=== PATIENT | female | born 1995 | race Caucasian/White ===

== ENCOUNTER 2018-05-07 19:53 | Observation (INO) | payer OTHER ==
--- NOTE | 2018-05-07 20:20 | PDOC ---
Rapid Medical Evaluation Chief Complaint: Nausea/Vomiting Time Seen by Provider: 05/07/18 20:18 Medical Evaluation: 05/07/18 20:18 I have performed a brief in-person evaluation of this patient. The patient presents with a chief complaint of: nausa, vomiting and diarrhea. Also reports lower back pain with no radiation States history of sciatica and kidney stone Pertinent physical exam findings: NAD unlabored breathing no midspinal tenderness no cva tenderness I have ordered the following: urine preg, urinalysis, analgesia The patient will proceed to the ED for further evaluation. Discharge Disposition - Diagnosis Back pain - Referrals - Patient Instructions - Post Discharge Activity
[2018-05-07 21:02] LABS: URINE APPEARANCE SLCLOUDY; URINE BILIRUBIN NEGATIVE (<2.0 mg/dL); URINE COLOR DKYELLOW; URINE GLUCOSE (UA) NEGATIVE (NEGATIVE); URINE KETONE 2+ (NEGATIVE); URINE LEUK ESTERASE NEGATIVE (NEGATIVE); URINE NITRITE NEGATIVE (NEGATIVE); URINE PROTEIN 1+ (NEGATIVE); URINE UROBILINOGEN NEGATIVE mg/dL (0.2-1.0)
[2018-05-07 21:03] LABS: HCG,QUALITATIVE URINE Negative
[2018-05-07 21:16] LABS: EPI CELLS FEW /HPF (FEW); URINE MUCUS RARE
--- NOTE | 2018-05-07 21:50 | PDOC ---
Attending Attestation - HPI HPI: 05/07/18 22:34 The patient is a 22 year old, with a significant PMH of nephrolithiasis, who presents to the emergency department today for evaluation of right flank pain which she describes as a constant cramping that began this morning. Patient also notes 1 day of nausea, vomiting, and diarrhea. She states these symptoms are similar to when she had kidney stones. The patient denies chest pain, shortness of breath, headache and dizziness. Denies fever, chills, and constipation. Denies dysuria, frequency, urgency and hematuria. Allergies: Codeine Social history: None reported - Physicial Exam PE: 05/07/18 22:34 Agree with resident's exam. <Betsey Oconnor - Last Filed: 05/07/18 22:36> - Resident Resident Name: Mike Gil - ED Attending Attestation I have performed the following: I have examined & evaluated the patient, The case was reviewed & discussed with the resident, I agree w/resident's findings & plan - Medical Decision Making 05/07/18 23:33 22-year-old female with vomiting and diarrhea, now with bilateral back pain and history of kidney stones Labs as well as CT scan of the abdomen and pelvis IV fluid normal saline, analgesics Plan for discharge home pending CT scan and lab results <Barb Cardona - Last Filed: 05/07/18 23:35> Attestations - Attestations 05/07/18 22:36 Documentation prepared by Betsey Oconnor, acting as hospital medical biller for Barb Cardona DO. <Betsey Oconnor - Last Filed: 05/07/18 22:36>
--- NOTE | 2018-05-07 22:08 | PDOC ---
History of Present Illness - General Chief Complaint: Nausea/Vomiting Stated Complaint: BACK PAIN VOMITING Time Seen by Provider: 05/07/18 20:18 History Source: Patient Exam Limitations: No Limitations - History of Present Illness Initial Comments: 05/07/18 22:20 22 yo F with a hx of nephrolithiais (2x lithotripsy and ureteral stent right side 10 years ago) presents to the emergency department with N/V/D with concurrent bilateral lower back pain that is consistent with her nephrolithiasis. Per the patient, the pain was gradual onset with 10/10 constant cramp like pain without radiation with right lower back worse than left side back. She states she has had 5+ NBNB emesis events with diarrhea without hematochezia. Per the patient, she endorses the following: headaches. Denies the following: fevers, chills, neck stiffness, chest pain, SOB, abdominal pain, dysuria, hematuria, hematochezia, leg pain/swelling, and vaginal bleeding/discharge. Currently on OCP. Meds: None Allergies: Codeine Shx: None Pmhx: Nephrolithiasis Past History - Past Medical History Allergies/Adverse Reactions: Allergies Allergy/AdvReac Type Severity Reaction Status Date / Time codeine Allergy Verified 05/07/18 20:18 Home Medications: Ambulatory Orders NK [No Known Home Medication] 05/07/18 COPD: No - Suicide/Smoking/Psychosocial Hx Smoking History: Never smoked Have you smoked in the past 12 months: No Information on smoking cessation initiated: No Hx Alcohol Use: No Drug/Substance Use Hx: No Review of Systems - Review of Systems Able to Perform ROS?: Yes Is the patient limited Tajik proficient: No Constitutional: No: Chills, Diaphoresis, Fever HEENTM: No: Eye Pain, Ear Pain, Nose Pain, Throat Pain, Mouth Pain Respiratory: No: Cough, Shortness of Breath Cardiac (ROS): No: Chest Pain, Lightheadedness, Palpitations, Syncope, Chest Tightness ABD/GI: Yes: Diarrhea, Nausea, Vomiting. No: Constipated, Poor Appetite, Poor Fluid Intake, Rectal Bleeding, Tarry Stools : No: Burning, Dysuria, Hematuria, Incontinence Musculoskeletal: Yes: Back Pain. No: Joint Pain, Neck Pain Integumentary: No: Bruising, Erythema, Rash Neurological: Yes: Headache. No: Numbness, Tingling, Tremors, Ataxia Psychiatric: No: Change in Appetite Endocrine: No: Increased Hunger Hematologic/Lymphatic: No: Anemia *Physical Exam - Vital Signs Last Vital Signs Temp Pulse Resp BP Pulse Ox 98.1 F 132 H 16 141/78 100 05/07/18 20:15 05/07/18 20:15 05/07/18 20:15 05/07/18 20:15 05/07/18 20:15 - Physical Exam General Appearance: Yes: Nourished, Appropriately Dressed. No: Apparent Distress, Intoxicated, Cachetic HEENT: positive: EOMI, JUAN C, Normal Voice, Symmetrical, Pharynx Normal, Hearing Grossly Normal. negative: Pale Conjunctivae, Scleral Icterus (R), Scleral Icterus (L), Muffled/Hoarse voice, Excessive drooling Neck: positive: Trachea midline, Supple. negative: Tender, Lymphadenopathy (R) , Lymphadenopathy (L), Tender lateral, Tender midline Respiratory/Chest: positive: Lungs Clear, Normal Breath Sounds. negative: Chest Tender, Respiratory Distress, Accessory Muscle Use, Crackles, Rales, Rhonchi, Stridor, Wheezing Cardiovascular: positive: Regular Rhythm, Regular Rate, S1, S2. negative: Systolic Murmur Gastrointestinal/Abdominal: positive: Normal Bowel Sounds, Flat, Soft. negative : Tender, Rebound Lymphatic: negative: Adenopathy Musculoskeletal: positive: Normal Inspection. negative: CVA Tenderness, Vertebral Tenderness Extremity: positive: Normal Capillary Refill, Normal Inspection, Normal Range of Motion. 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 negative: Facial Droop, Sensory Deficit Moderate Sedation - Procedure Monitoring Vital Signs: Procedure Monitoring Vital Signs Temperature 98.1 F 05/07/18 20:15 Pulse Rate 132 H 05/07/18 20:15 Respiratory Rate 16 05/07/18 20:15 Blood Pressure 141/78 05/07/18 20:15 O2 Sat by Pulse Oximetry (%) 100 05/07/18 20:15 ED Treatment Course - LABORATORY CBC & Chemistry Diagram: 05/07/18 22:10 05/07/18 22:10 - ADDITIONAL ORDERS Additional order review: Laboratory Results 05/07/18 20:42 Urine Color Dkyellow Urine Appearance Slcloudy Urine pH 5.0 Ur Specific [place] 1.032 Urine Protein 1+ H Urine Glucose (UA) Negative Urine Ketones 2+ H Urine Blood Negative Urine Nitrite Negative Urine Bilirubin Negative Urine Urobilinogen Negative Ur Leukocyte Esterase Negative Urine WBC (Auto) 5 Urine RBC (Auto) 1 Ur Epithelial Cells Few Urine Mucus Rare Urine HCG, Qual Negative Medical Decision Making - Medical Decision Making 22 yo F with a hx of nephrolithiais (2x lithotripsy and ureteral stent right side 10 years ago) presents to the emergency department with N/V/D with concurrent bilateral lower back pain that is consistent with her nephrolithiasis. Initial vitals: Initial Vital Signs Temp Pulse Resp BP Pulse Ox 98.1 F 132 H 16 141/78 100 05/07/18 20:15 05/07/18 20:15 05/07/18 20:15 05/07/18 20:15 05/07/18 20:15 Work up: ddx: nephrolithiasis vs UTI vs vs gastroenteritis Laboratory Tests 05/07/18 05/07/18 05/07/18 20:42 22:10 22:10 WBC 11.8 H RBC 5.25 H Hgb 14.9 Hct 44.1 MCV 84.0 MCH 28.4 MCHC 33.8 RDW 13.2 Plt Count 482 H MPV 7.3 L Sodium 140 Potassium 4.9 Chloride 106 Carbon Dioxide 22 Anion Gap 12 BUN 19 H Creatinine 0.9 Creat Clearance w eGFR > 60 Random Glucose 111 H Calcium 9.9 Total Bilirubin 0.7 AST 22 ALT 24 Alkaline Phosphatase 102 Total Protein 8.6 H Albumin 4.0 Lipase 55 L Urine Color Dkyellow Urine Appearance Slcloudy Urine pH 5.0 Ur Specific [place] 1.032 Urine Protein 1+ H Urine Glucose (UA) Negative Urine Ketones 2+ H Urine Blood Negative Urine Nitrite Negative Urine Bilirubin Negative Urine Urobilinogen Negative Ur Leukocyte Esterase Negative Urine WBC (Auto) 5 Urine RBC (Auto) 1 Ur Epithelial Cells Few Urine Mucus Rare Urine HCG, Qual Negative UA shows 5 WBC with 2+ ketones likely consistent with dehydration. patient has slight leukocytosis likely secondary to reactivity. significant improvement in symptoms when given toradol/IVF/zofran. patient was having a pending ct abdomen and pelvis to assess status of ureteral vs nephro stones. Patient was signed out to Dr. Martinez for further work up and management. *DC/Admit/Observation/Transfer Diagnosis at time of Disposition: Back pain Qualifiers: Back pain location: back pain in unspecified location Chronicity: unspecified Back pain laterality: unspecified Qualified Code(s): M54.9 - Dorsalgia, unspecified - Referrals - Patient Instructions - Post Discharge Activity
[2018-05-07] MEDS ORDERED: KETOROLAC TROMETHAMINE 30 MG/1 ML VIAL IM ONE (22:09)
[2018-05-07] MEDS ORDERED: KETOROLAC TROMETHAMINE 30 MG/1 ML VIAL ONE (22:15)
[2018-05-07 22:18] LABS: HEMATOCRIT 44.1 % (32.4-45.2); HEMOGLOBIN 14.9 GM/dL (10.7-15.3); MCH 28.4 pg (25.7-33.7); MCHC 33.8 g/dl (32.0-36.0); MEAN PLT VOLUME 7.3 fl (7.5-11.1); PLATELET COUNT 482 K/MM3 (134-434); RBC 5.25 M/mm3 (3.60-5.2); RDW 13.2 % (11.6-15.6); WHITE BLOOD COUNT 11.8 K/mm3 (4.0-10.0)
[2018-05-07] MEDS ORDERED: SODIUM CHLORIDE 1,000 ML IV STA (22:19)
[2018-05-07] MEDS ORDERED: ONDANSETRON 4 MG/2 ML VIAL IVPUSH ONE (22:20)
[2018-05-07] MEDS ORDERED: ONDANSETRON 4 MG/2 ML VIAL ONE (22:29)
[2018-05-07 22:48] LABS: ALK PHOS 102 U/L (45-117); ANION GAP 12 MMOL/L (8-16); BILIRUBIN,TOTAL 0.7 mg/dL (0.2-1); BLOOD UREA NITROGEN 19 mg/dL (7-18); CALCIUM 9.9 mg/dL (8.5-10.1); CHLORIDE 106 mmol/L (98-107); CO2 22 mmol/L (21-32); CREATININE 0.9 mg/dL (0.55-1.3); GLUCOSE,RANDOM 111 mg/dL (74-106); LIPASE 55 U/L (73-393); POTASSIUM 4.9 mmol/L (3.5-5.1); SGOT/AST 22 U/L (15-37); SGPT/ALT 24 U/L (13-61); SODIUM 140 mmol/L (136-145); TOT PROT 8.6 g/dl (6.4-8.2)
--- NOTE | 2018-05-08 00:53 | PDOC ---
*Physical Exam - Vital Signs Last Vital Signs Temp Pulse Resp BP Pulse Ox 98.1 F 132 H 16 141/78 100 05/07/18 20:15 05/07/18 20:15 05/07/18 20:15 05/07/18 20:15 05/07/18 20:15 - Physical Exam Comments: 05/08/18 01:05 GENERAL: Awake, alert, and fully oriented, in no acute distress HEAD: No signs of trauma, normocephalic, atraumatic EYES: PERRLA, EOMI, sclera anicteric, conjunctiva clear ENT: Hearing grossly normal, nares patent, oropharynx clear without exudates. Moist mucosa NECK: Normal ROM, supple, no lymphadenopathy, JVD, or masses LUNGS: No distress, speaks full sentences, clear to auscultation bilaterally HEART: Regular rate and rhythm, normal S1 and S2, no murmurs, rubs or gallops, peripheral pulses normal and equal bilaterally. ABDOMEN: Diffuse mild ttp. Soft, NDS, normoactive bowel sounds. No guarding, no rebound. No masses EXTREMITIES : Normal inspection, Normal range of motion, no edema. No clubbing or cyanosis. SKIN: Warm, Dry, normal turgor, no rashes or lesions noted ED Treatment Course - LABORATORY CBC & Chemistry Diagram: 05/07/18 22:10 05/07/18 22:10 - ADDITIONAL ORDERS Additional order review: Laboratory Results 05/07/18 05/07/18 22:10 20:42 Sodium 140 Potassium 4.9 Chloride 106 Carbon Dioxide 22 Anion Gap 12 BUN 19 H Creatinine 0.9 Creat Clearance w eGFR > 60 Random Glucose 111 H Calcium 9.9 Total Bilirubin 0.7 AST 22 ALT 24 Alkaline Phosphatase 102 Total Protein 8.6 H Albumin 4.0 Lipase 55 L Urine Color Dkyellow Urine Appearance Slcloudy Urine pH 5.0 Ur Specific [place] 1.032 Urine Protein 1+ H Urine Glucose (UA) Negative Urine Ketones 2+ H Urine Blood Negative Urine Nitrite Negative Urine Bilirubin Negative Urine Urobilinogen Negative Ur Leukocyte Esterase Negative Urine WBC (Auto) 5 Urine RBC (Auto) 1 Ur Epithelial Cells Few Urine Mucus Rare Urine HCG, Qual Negative 05/07/18 22:10 RBC 5.25 H MCV 84.0 MCHC 33.8 RDW 13.2 MPV 7.3 L - RADIOLOGY Radiology Studies Ordered: 05/08/18 01:18 : 1995 Order Type: Preliminary Name: KJ FERRER Sex: F Study Description: CT ABDOMEN AND PELVIS Modality: CT Location: [facility] Referring Physician: BRIT SPANGLER Stomach: Normal Small bowel: Normal Large bowel: Normal Appendix: Appendix is mildly distended measuring 8 mm and is filled with fluid. There is no wall thickening or surrounding edema. Adrenals:Normal Kidneys: Normal Vascular: Normal Lymphatic: There are some mildly enlarged right lower quadrant mesenteric nodes. The largest measures 7 x 7 mm Peritoneal: No free peritoneal air or fluid Pelvis: Uterus: normal CONFIDENTIALITY NOTICE: This information is intended only for the use of the recipient(s) named above. If you are not the intended recipient, or a person responsible for delivering it to the intended recipient, you are hereby notified that any disclosure, copying, distribution or use of any of the information contained in or attached to this transmission is STRICTLY PROHIBITED. If you have received this transmission in error, please immediately notify Imaging Ed Special Education Teacher and destroy the original transmission and its attachments without saving them in any manner [address] [facility] [address] [place] [address] Phone: [phone] Fax: Email: [email or web address] Patient Information: : 1995 Order Type: Preliminary Name: KJ FERRER Sex: F Study Description: CT ABDOMEN AND PELVIS Modality: CT Location: [facility] Referring Physician: BRIT SPANGLER Rectum: Normal Bladder: Normal The inferior thorax: Normal General: Skeletal: Normal Abdominal wall: Normal IMPRESSION: Mildly distended appendix with right lower quadrant mesenteric lymph node enlargement. Findings concerning for early or mild appendicitis. This may reflect a chronic viral inflammation rather than an acute separative process. Correlation with history exam and leukocytosis is recommended One or more of the following dose reduction techniques were used: automated exposure control, adjustment of the mA and/or kV according to patient size, use of iterative reconstructive technique. THIS DOCUMENT HAS BEEN ELECTRONICALLY SIGNED Dayo Ayala MD CONFIDENTIALITY NOTICE: This information is intended only for the use of the recipient(s) named above. If you are not the intended recipient, or a person responsible for delivering it to the intended recipient, you are hereby notified that any disclosure, copying, distribution or use of any of the information contained in or attached to this transmission is STRICTLY PROHIBITED. If you have received this transmission in error, please immediately notify Imaging Ed Special Education Teacher and destroy the original transmission and its attachments without saving them in any manner [address] [facility] [address] [place] [address] Phone: [phone] Fax: Email: [email or web address] Patient Information: : 1995 Order Type: Preliminary Name: KJ FERRER Sex: F Study Description: CT ABDOMEN AND PELVIS Modality: CT Location: [facility] Referring Physician: BRIT SPANGLER 05/08/2018 00:37 JENNIFER Mccauley Please call Imaging Ed Special Education Teacher [phone]) with questions. Dayo Ayala MD Clinicians - Please contact Imaging Ed Special Education Teacher with further questions at [phone]) Patients - Please contact your Ordering Provider with questions - Medications Given in the ED: ED Medications Discontinued Medications Generic Name Dose Route Start Last Admin Trade Name Freq PRN Reason Stop Dose Admin Sodium Chloride 1,000 mls @ 1,000 mls/hr 05/07/18 22:19 05/07/18 22:38 Normal Saline - IV 05/07/18 23:18 1,000 mls/hr ASDIR STA Administration Ketorolac Tromethamine 30 mg 05/07/18 22:09 05/07/18 22:19 Toradol Injection - IM 05/07/18 22:10 30 mg ONCE ONE Administration Ondansetron HCl 4 mg 05/07/18 22:20 05/07/18 22:38 Zofran Injection IVPUSH 05/07/18 22:21 4 mg ONCE ONE Administration Medical Decision Making - Medical Decision Making 05/08/18 00:45 22 yo F with h/o nephrolithiasis ( ureteral stent x 10 years ago, and lithrotrispy x 2) p/w N/V ( 5 episode NBNB emesis), and diarrhea x 1 day. HR 132 , vitals otherwise wnl, AF, A&OX3. Physical exam notable for RLQ ttp. Recieived singout from Dr. Brandon. Evaluating for nephrolithaisis vs. appendicitis. Labs, UA pending. Pain controlled with toradol. Antiemeitc and hydration control provided with Zofran, NS. 22 yo F with a hx of nephrol ED Course: Per Dr. Cohen ( imaging extension course counselor ) pt. appendix is enlarged, with enlarged lymph nodes. Viral etiology ssupected vs. suppurative appendicitis. Will likely not require surgical management. 05/08/18 00:48 UA: Neg urine preg: Neg 05/08/18 01:17 CT AP: IMPRESSION: Mildly distended appendix with right lower quadrant mesenteric lymph node enlargement. Findings concerning for early or mild appendicitis. This may reflect a chronic viral inflammation rather than an acute separative process. Correlation with history exam and leukocytosis is recommended Patient refused pelvic exam. 05/08/18 02:14 Patient endorsed to surgery Dr. Monroe. will provide maintenance fluids, IV tylenol, NPO, No Antibiotics. Plan to admit med/surg 05/08/18 03:11 Patient endorsed and admitted Dr. Tavares. Will remain NPO on Maintenance fluids. Dr. Monroe to see in AM. *DC/Admit/Observation/Transfer Diagnosis at time of Disposition: Appendicitis Qualifiers: Appendicitis type: unspecified Qualified Code(s): K37 - Unspecified appendicitis - Discharge Dispostion Condition at time of disposition: Stable Decision to Admit order: Yes - Referrals - Patient Instructions - Post Discharge Activity
[2018-05-08] MEDS ORDERED: SODIUM CHLORIDE 1,000 ML IV SCH (01:30)
--- NOTE | 2018-05-08 03:25 | HP ---
CHIEF COMPLAINT: Abdominal Pain PCP: Not on file HISTORY OF PRESENT ILLNESS: Patient presents with abdominal pain; she is on no chronic Rx medications. She presents for a 1 day history of R-flank pain radiating around as well as nausea/ vomitting/1x diarrhea. She if afebrile and tachycardic on presentation; she got IVF in the ER. She has a history of nephrolithiasis and given the presenting sx CT checked; it revealed on the prelim report ? early appendicitis ? ER discussed with Dr. Monroe; based on the conversation we will not start abx, keep the pt NPO, and place her on maintenance fluids. Surgery to see in AM. Appreciate expert opinion in the ongoing management of this patient. PAST MEDICAL HISTORY: Nephrolithiasis PAST SURGICAL HISTORY: 2x lithotripsy, stent placement (10 yrs ago) Social History: Family History: Asked and noncontributory Allergies codeine Allergy (Verified 05/07/18 20:18) HOME MEDICATIONS: Home Medications Medication Instructions Recorded NK [No Known Home Medication] 05/07/18 REVIEW OF SYSTEMS 10 sys ROS done and negative aside from HPI PHYSICAL EXAMINATION Vital Signs - 24 hr 05/07/18 20:15 Temperature 98.1 F Pulse Rate 132 H Respiratory 16 Rate Blood Pressure 141/78 O2 Sat by Pulse 100 Oximetry (%) GENERAL: Awake, alert, and fully oriented, in no acute distress. HEAD: Normal with no signs of trauma. EYES: Pupils equal, round and reactive to light, extraocular movements intact EARS, NOSE, THROAT: Ears normal, nares patent, oropharynx clear without exudates. Moist mucous membranes. NECK: Normal range of motion, supple without lymphadenopathy, JVD, or masses. LUNGS: Breath sounds equal, clear to auscultation bilaterally. No wheezes, and no crackles. No accessory muscle use. HEART: Regular rate and rhythm, normal S1 and S2 without murmur, rub or gallop. ABDOMEN: Soft, slightly tender, not distended, normoactive bowel sounds MUSCULOSKELETAL: Normal range of motion at all joints. No bony deformities or tenderness. No CVA tenderness. NEUROLOGICAL: Cranial nerves II-XII intact. Normal speech. Normal gait. PSYCHIATRIC: Cooperative. Good eye contact. Appropriate mood and affect. SKIN: Warm, dry, normal turgor, no rashes or lesions noted, normal capillary refill. Laboratory Results - last 24 hr 05/07/18 05/07/18 05/07/18 20:42 22:10 22:10 WBC 11.8 H RBC 5.25 H Hgb 14.9 Hct 44.1 MCV 84.0 MCH 28.4 MCHC 33.8 RDW 13.2 Plt Count 482 H MPV 7.3 L Sodium 140 Potassium 4.9 Chloride 106 Carbon Dioxide 22 Anion Gap 12 BUN 19 H Creatinine 0.9 Creat Clearance w eGFR > 60 Random Glucose 111 H Calcium 9.9 Total Bilirubin 0.7 AST 22 ALT 24 Alkaline Phosphatase 102 Total Protein 8.6 H Albumin 4.0 Lipase 55 L Urine Color Dkyellow Urine Appearance Slcloudy Urine pH 5.0 Ur Specific [place] 1.032 Urine Protein 1+ H Urine Glucose (UA) Negative Urine Ketones 2+ H Urine Blood Negative Urine Nitrite Negative Urine Bilirubin Negative Urine Urobilinogen Negative Ur Leukocyte Esterase Negative Urine WBC (Auto) 5 Urine RBC (Auto) 1 Ur Epithelial Cells Few Urine Mucus Rare Urine HCG, Qual Negative Prelim CT: IMPRESSION: Mildly distended appendix with right lower quadrant mesenteric lymph node enlargement. Findings concerning for early or mild appendicitis. This may reflect a chronic viral inflammation rather than an acute separative process. Correlation with history exam and leukocytosis is recommended ASSESSMENT/PLAN: Patient presents with flank pain, nausea, vomitting, diarrhea. ER spoke to surgery; placing on observation for ? early appy 1) ? Early appendicitis -NPO, LR@100cc/hr, followup surgical consult -IV APAP and PRN MSO4 -Holding off abx per sgy; followup final imaging 2) Nausea/vomiting/diarrhea -PRN zofran, check lactoferrin and fecal WBC, low risk of C Diff at this juncture 3) Hx Nephrolithiasis -Noted; followup OP 4) Thrombocytosis -Trend CBC, likely reactive DVT px: SCDs and early ambulation, low risk GI px: Not indicated Full Code
[2018-05-08] MEDS ORDERED: MORPHINE SULFATE 2 MG/ML VIAL IVPUSH PRN (03:33)
[2018-05-08] MEDS ORDERED: ONDANSETRON 4 MG/2 ML VIAL IVPUSH PRN (03:33)
[2018-05-08] MEDS ORDERED: ACETAMINOPHEN 325 MG TABLET (FP) PO PRN (03:33)
[2018-05-08] MEDS ORDERED: LACTATED RINGERS SOLUTION 1,000 ML IV SCH (03:45)
[2018-05-08 04:55] LABS: HEMOGLOBIN 12.4 GM/dL (10.7-15.3); MCH 28.5 pg (25.7-33.7); MCHC 34.4 g/dl (32.0-36.0); MEAN PLT VOLUME 7.1 fl (7.5-11.1); PLATELET COUNT 385 K/MM3 (134-434); RBC 4.34 M/mm3 (3.60-5.2); RDW 12.8 % (11.6-15.6); WHITE BLOOD COUNT 5.5 K/mm3 (4.0-10.0)
[2018-05-08 05:13] LABS: INR 1.09 (0.83-1.09); PROTHROMBIN TIME (PATIENT) 12.9 SEC (9.7-13.0)
[2018-05-08 05:23] LABS: ANION GAP 7 MMOL/L (8-16); BLOOD UREA NITROGEN 20 mg/dL (7-18); CALCIUM 8.1 mg/dL (8.5-10.1); CHLORIDE 112 mmol/L (98-107); CO2 20 mmol/L (21-32); CREATININE 0.6 mg/dL (0.55-1.3); GLUCOSE,RANDOM 97 mg/dL (74-106); MAGNESIUM 2.2 mg/dL (1.8-2.4); POTASSIUM 4.1 mmol/L (3.5-5.1); SODIUM 139 mmol/L (136-145)
[2018-05-08 06:32] VITALS: BMI 29.9
[2018-05-08 09:13] VITALS: BP 121/62; PULSE 92; TEMP 98.8
--- NOTE | 2018-05-08 13:30 | EKG ---
Test Reason : Blood Pressure : / mmHG Vent. Rate : 097 BPM Atrial Rate : 097 BPM P-R Int : 138 ms QRS Dur : 084 ms QT Int : 348 ms P-R-T Axes : 020 051 036 degrees QTc Int : 441 ms NORMAL SINUS RHYTHM NORMAL ECG NO PREVIOUS ECGS AVAILABLE Confirmed by MD KYLIE, ROSHNI ([id number]) on 05/08/2018 1:30:36 PM Referred By: Confirmed By:ROSHNI ESPINAL MD
--- NOTE | 2018-05-08 14:31 | HOSP ---
Subjective - Review of Symptoms Events since last encounter: patient left AMA even before I evaluated her. risks of leaving AMA were d/w her By Dr. Ariane devlin Physical Examination Vital Signs: Vital Signs Temperature 98.8 F 05/08/18 09:00 Pulse Rate 92 H 05/08/18 09:00 Respiratory Rate 17 05/08/18 09:00 Blood Pressure 121/62 05/08/18 09:00 O2 Sat by Pulse Oximetry (%) 98 05/08/18 10:26 Labs: CBC, BMP 05/08/18 04:34 05/08/18 04:34
--- NOTE | 2018-05-08 14:47 | DS ---
Physical Exam: SUBJECTIVE: Patient seen and examined OBJECTIVE: Vital Signs Period Temp Pulse Resp BP Sys/Mario Pulse Ox Last 24 Hr 98.1 F-98.9 F 92-132 16-20 121-141/62-78 98-100 PHYSICAL EXAM GENERAL: The patient is awake, alert, and fully oriented, in no acute distress. HEAD: Normal with no signs of trauma. EYES: PERRL, extraocular movements intact, sclera anicteric, conjunctiva clear. ENT: Ears normal, nares patent, oropharynx clear without exudates, moist mucous membranes. NECK: Trachea midline, full range of motion, supple. LUNGS: Breath sounds equal, clear to auscultation bilaterally, no wheezes, no crackles, no accessory muscle use. HEART: Regular rate and rhythm, S1, S2 without murmur, rub or gallop. ABDOMEN: Soft, nontender, nondistended, normoactive bowel sounds, no guarding, no rebound, no hepatosplenomegaly, no masses. EXTREMITIES: 2+ pulses, warm, well-perfused, no edema. NEUROLOGICAL: Cranial nerves II through XII grossly intact. Normal speech, gait not observed. PSYCH: Normal mood, normal affect. SKIN: Warm, dry, normal turgor, no rashes or lesions noted. LABS Laboratory Results - last 24 hr 05/07/18 05/07/18 05/07/18 20:42 22:10 22:10 WBC 11.8 H RBC 5.25 H Hgb 14.9 Hct 44.1 MCV 84.0 MCH 28.4 MCHC 33.8 RDW 13.2 Plt Count 482 H MPV 7.3 L PT with INR INR Sodium 140 Potassium 4.9 Chloride 106 Carbon Dioxide 22 Anion Gap 12 BUN 19 H Creatinine 0.9 Creat Clearance w eGFR > 60 Random Glucose 111 H Calcium 9.9 Magnesium Total Bilirubin 0.7 AST 22 ALT 24 Alkaline Phosphatase 102 Total Protein 8.6 H Albumin 4.0 Lipase 55 L Urine Color Dkyellow Urine Appearance Slcloudy Urine pH 5.0 Ur Specific [place] 1.032 Urine Protein 1+ H Urine Glucose (UA) Negative Urine Ketones 2+ H Urine Blood Negative Urine Nitrite Negative Urine Bilirubin Negative Urine Urobilinogen Negative Ur Leukocyte Esterase Negative Urine WBC (Auto) 5 Urine RBC (Auto) 1 Ur Epithelial Cells Few Urine Mucus Rare Urine HCG, Qual Negative Blood Type Antibody Screen 05/08/18 05/08/18 05/08/18 04:34 04:34 04:34 WBC 5.5 RBC 4.34 Hgb 12.4 Hct 36.0 D MCV 83.0 MCH 28.5 MCHC 34.4 RDW 12.8 Plt Count 385 D MPV 7.1 L PT with INR INR Sodium 139 Potassium 4.1 Chloride 112 H Carbon Dioxide 20 L Anion Gap 7 L BUN 20 H Creatinine 0.6 Creat Clearance w eGFR > 60 Random Glucose 97 Calcium 8.1 L Magnesium 2.2 Total Bilirubin AST ALT Alkaline Phosphatase Total Protein Albumin Lipase Urine Color Urine Appearance Urine pH Ur Specific [place] Urine Protein Urine Glucose (UA) Urine Ketones Urine Blood Urine Nitrite Urine Bilirubin Urine Urobilinogen Ur Leukocyte Esterase Urine WBC (Auto) Urine RBC (Auto) Ur Epithelial Cells Urine Mucus Urine HCG, Qual Blood Type A POSITIVE Antibody Screen Negative 05/08/18 05/08/18 04:34 09:18 WBC RBC Hgb Hct MCV MCH MCHC RDW Plt Count MPV PT with INR 12.90 INR 1.09 Sodium Potassium Chloride Carbon Dioxide Anion Gap BUN Creatinine Creat Clearance w eGFR Random Glucose Calcium Magnesium Total Bilirubin AST ALT Alkaline Phosphatase Total Protein Albumin Lipase Urine Color Urine Appearance Urine pH Ur Specific [place] Urine Protein Urine Glucose (UA) Urine Ketones Urine Blood Urine Nitrite Urine Bilirubin Urine Urobilinogen Ur Leukocyte Esterase Urine WBC (Auto) Urine RBC (Auto) Ur Epithelial Cells Urine Mucus Urine HCG, Qual Blood Type A POSITIVE Antibody Screen imaging: Prelim CT: IMPRESSION: Mildly distended appendix with right lower quadrant mesenteric lymph node enlargement. Findings concerning for early or mild appendicitis. This may reflect a chronic viral inflammation rather than an acute separative process. Correlation with history exam and leukocytosis is recommended HOSPITAL COURSE: Date of Admission:05/08/18 22 y/o female presented with abdominal pain/N/V wwith an elevated WBC. CT scan noted above ; [facility] was consulted an GI. however patient left AMA Date of Discharge: 05/08/18 Minutes to complete discharge: 39 Discharge Summary Reason For Visit: APPENDICITIS Condition: Stable - Instructions Disposition: AGAINST MEDICAL ADVICE - Home Medications Comprehensive Discharge Medication List: Ambulatory Orders NK [No Known Home Medication] 05/07/18 This patient is new to me today: Yes Date on this admission: 05/08/18 Emergency Visit: Yes ED Registration Date: 05/08/18 Care time: The patient presented to the Emergency Department on the above date and was hospitalized for further evaluation of their emergent condition. Critical Care patient: No - Discharge Referral Referred to [facility] Med P.C.: No
== END 2018-05-08 10:39 | disposition left against medical advice (07) ==
LOC: JER 19:53 → JERBED 05-08 02:27 → J7W 05-08 06:05
PROVIDERS: ADMIT Internal Medicine; ATTEND Internal Medicine
PROC: 3E033GC Introduction of Other Therapeutic Substance into Peripheral Vein, Percutaneous Approach (ICD-10-PCS; principal; 2018-05-08)
PROC: 3E0233Z Introduction of Anti-inflammatory into Muscle, Percutaneous Approach (ICD-10-PCS; 2018-05-08)
PROC: 3E0337Z Introduction of Electrolytic and Water Balance Substance into Peripheral Vein, Percutaneous Approach (ICD-10-PCS; 2018-05-08)
DX: K38.8 Other specified diseases of appendix (principal); R11.2 Nausea with vomiting, unspecified; R19.7 Diarrhea, unspecified; M54.5 Low back pain; R10.9 Unspecified abdominal pain; D47.3 Essential (hemorrhagic) thrombocythemia; Z87.442 Personal history of urinary calculi; Z88.5 Allergy status to narcotic agent
CPT/HCPCS: 36415; 71045-TC-FY; 74176-TC; 80048; 80053; 81003; 81015; 83690; 83735; 84703; 85027; 85610; 86850; 86900; 86901; 87040; 87077; 87086; 93005; 93010; 99284-25; G0378; J7030